=== PATIENT | female | born 1945 | race Caucasian/White ===

== ENCOUNTER 2025-04-09 10:31 | Emergency (ER) | payer MEDICARE, OTHER ==
[~2025-04-09] VITALS: Ht 162.6 cm; Wt 59.0 kg
[2025-04-09 10:48] VITALS: BP 158/70; TEMP 98
[2025-04-09 12:32] VITALS: O2SAT 98
== END 2025-04-09 12:33 | disposition home or self-care (01) ==
LOC: ER 10:40
DX: S86.112A Strain of other muscle(s) and tendon(s) of posterior muscle group at lower leg level, left leg, initial encounter (principal); M79.605 Pain in left leg; Z88.0 Allergy status to penicillin; Z96.652 Presence of left artificial knee joint; X58.XXXA Exposure to other specified factors, initial encounter; Y93.89 Activity, other specified; Y92.89 Other specified places as the place of occurrence of the external cause; Y99.8 Other external cause status
CPT/HCPCS: 93971-TC